=== PATIENT | female | born 1955 | race Caucasian/White ===

== ENCOUNTER 2024-09-29 05:54 | Day surgery (SDC) | payer MEDICARE, OTHER ==
[2024-09-11 11:25] LABS: BASOPHILS % (AUTO) 0.7 % (0-1); EOSINOPHILS # (AUTO) 0.1 X10'3 (0-0.9); EOSINOPHILS % (AUTO) 1.5 % (0-6); LYMPHOCYTES # (AUTO) 1.6 X10'3 (1.1-4.8); LYMPHOCYTES % (AUTO) 24.6 % (21-51); MEAN CORPUSCULAR HEMOGLOBIN 29.1 PG (27.0-31.0); MEAN CORPUSCULAR HGB CONC 33.5 g/dL (33.0-36.5); MEAN CORPUSCULAR VOLUME 86.8 FL (78-98); MEAN PLATELET VOLUME 8.4 FL (7.4-10.4); MONOCYTES # (AUTO) 0.5 X10'3 (0-0.9); MONOCYTES % (AUTO) 7.2 % (2-12); NEUTROPHILS # (AUTO) 4.4 X10'3 (1.8-7.7); PRE OP HEMATOCRIT 43.1 % (35.0-45.0); PRE OP HEMOGLOBIN 14.4 g/dL (12.0-16.0); PRE OP PLATELET COUNT 338 X10'3 (140-440); PRE OP WHITE BLOOD COUNT 6.6 10'3 (4.8-10.8); RED BLOOD COUNT 4.96 X10'6 (4.20-5.60); RED CELL DISTRIBUTION WIDTH 13.8 % (11.5-14.5)
[2024-09-11 11:40] LABS: ALBUMIN 3.9 G/DL (3.4-5.0); ALBUMIN/GLOBULIN RATIO 1.1 (1.1-1.5); ALKALINE PHOSPHATASE 113 IU/L (46-116); BLOOD UREA NITROGEN 16 MG/DL (7-18); BUN/CREATININE RATIO 22.5 (10.0-20.0); CHLORIDE 105 MMOL/L (99-107); CREATININE 0.71 MG/DL (0.40-0.90); PRE OP ALT 22 U/L (30-65); PRE OP ANION GAP 6 (8-16); PRE OP AST 7 U/L (10-37); PRE OP BILIRUB, TOTAL 0.5 MG/DL (0.0-1.0); PRE OP GLUCOSE 184 MG/DL (70-104); PRE OP POTASSIUM 4.2 MMOL/L (3.4-5.1); PRE OP SODIUM 140 MMOL/L (135-145); TOTAL CARBON DIOXIDE 28.8 MMOL/L (24-32); TOTAL PROTEIN 7.6 G/DL (6.4-8.2); eGFR 82 ML/MIN
[2024-09-17] MEDS: famotidine 20mg tablet PO ONE (05:30)
[2024-09-17] MEDS: DOCUMENT DATE & TIME OF BETA-BLOCKER PO ONE (05:30)
[2024-09-17] MEDS: INDOCYANINE GREEN 25 MG/10 ML VIAL IV ONE (05:30)
[2024-09-17] MEDS: ceFAZolin 2gm in dextrose, iso 50 ML IV ONE (05:30)
[~2024-09-29] VITALS: Ht 154.9 cm; Wt 73.1 kg
[2024-09-29] VITALS (12 sets, daily range): BP systolic 120–142; BP diastolic 67–74; PULSE 55–70; RESP 10–16; TEMP 97.3; O2SAT 95–98
[2024-09-29] MEDS: ceFAZolin 2gm in dextrose, iso 50 ML IV ONE (05:30)
[~2024-09-29 05:54] MED LIST: ATOR10TA PO; GLIM4TAB7 PO; INSU300I3 SQ; LATA2.5D14 EACHEYE; LEVO100T9 PO; LISI20TA28 PO; METF-436 PO; METO-395 PO; MULTIVITAMIN PO; OMEP20CA16 PO; ringers solution, lacted 1,000 ML IV SCH
[2024-09-29] MEDS: famotidine 20mg tablet PO ONE (06:33)
[2024-09-29] MEDS: ringers solution, lacted 1,000 ML IV SCH ×2 (06:34→08:10)
[2024-09-29] MEDS ORDERED: BUPIVAcaine 2.5mg/ml inj 50ml vial (contains preservative) ONE (06:48)
[2024-09-29] MEDS ORDERED: LIDOcaine 1% 30ml preserv. free vial ONE (06:48)
[2024-09-29] MEDS: INDOCYANINE GREEN 25 MG/10 ML VIAL IV ONE (07:07)
[2024-09-29 07:12] LABS: BASOPHILS % (AUTO) 0.5 % (0-1); EOSINOPHILS # (AUTO) 0.1 X10'3 (0-0.9); EOSINOPHILS % (AUTO) 1.4 % (0-6); LYMPHOCYTES # (AUTO) 1.9 X10'3 (1.1-4.8); LYMPHOCYTES % (AUTO) 27.7 % (21-51); MEAN CORPUSCULAR HEMOGLOBIN 29.1 PG (27.0-31.0); MEAN CORPUSCULAR HGB CONC 33.6 g/dL (33.0-36.5); MEAN CORPUSCULAR VOLUME 86.5 FL (78-98); MEAN PLATELET VOLUME 8.3 FL (7.4-10.4); MONOCYTES # (AUTO) 0.6 X10'3 (0-0.9); MONOCYTES % (AUTO) 8.8 % (2-12); NEUTROPHILS # (AUTO) 4.3 X10'3 (1.8-7.7); NEUTROPHILS % (AUTO) 61.6 % (42-75); PRE OP HEMATOCRIT 43.2 % (35.0-45.0); PRE OP HEMOGLOBIN 14.5 g/dL (12.0-16.0); PRE OP PLATELET COUNT 298 X10'3 (140-440); PRE OP WHITE BLOOD COUNT 6.9 10'3 (4.8-10.8); RED BLOOD COUNT 4.99 X10'6 (4.20-5.60); RED CELL DISTRIBUTION WIDTH 13.9 % (11.5-14.5)
[2024-09-29 07:27] LABS: ALBUMIN 3.9 G/DL (3.4-5.0); ALBUMIN/GLOBULIN RATIO 1.1 (1.1-1.5); ALKALINE PHOSPHATASE 101 IU/L (46-116); BLOOD UREA NITROGEN 16 MG/DL (7-18); BUN/CREATININE RATIO 22.2 (10.0-20.0); CALCIUM 9.7 MG/DL (8.5-10.1); CHLORIDE 106 MMOL/L (99-107); CREATININE 0.72 MG/DL (0.40-0.90); PRE OP ALT 22 U/L (30-65); PRE OP ANION GAP 10 (8-16); PRE OP AST 14 U/L (10-37); PRE OP BILIRUB, TOTAL 0.6 MG/DL (0.0-1.0); PRE OP GLUCOSE 155 MG/DL (70-104); PRE OP POTASSIUM 4.2 MMOL/L (3.4-5.1); PRE OP SODIUM 141 MMOL/L (135-145); TOTAL CARBON DIOXIDE 25.2 MMOL/L (24-32); TOTAL PROTEIN 7.3 G/DL (6.4-8.2); eCRCL 56 ML/MIN; eGFR 81 ML/MIN
[2024-09-29] MEDS ORDERED: proCHLORperazine 10 MG/2 ml inj IV PRN (08:10)
[2024-09-29] MEDS ORDERED: hydrALAZINE 20mg/ml inj. IV PRN (08:10)
[2024-09-29] MEDS ORDERED: morphine 2 MG/ML inj. syringe IV PRN (08:10)
[2024-09-29] MEDS ORDERED: morphine 4 MG/ML inj SYRINge IV PRN (08:10)
[2024-09-29] MEDS ORDERED: labetalol 20mg/4ml (5mg/ml) syringe IV PRN (08:10)
[2024-09-29] MEDS ORDERED: ondansetron/PF 4mg/2ml inj IV PRN (08:10)
[2024-09-29] MEDS ORDERED: meperidine/PF 25mg/ml syringe IV PRN ×3 (08:10)
[2024-09-29] MEDS ORDERED: sevoflurane 250ml liquid IH ONE (08:32)
[2024-09-29] MEDS ORDERED: midazolam 1 mg/ML 2ml injection ONE (08:43)
[2024-09-29] MEDS ORDERED: fentaNYL /PF 50mcg/ml 5ml ampule ONE (08:44)
[2024-09-29] MEDS ORDERED: LIDOcaine 2% (20mg/ml) 5ml vial ONE (09:01)
[2024-09-29] MEDS ORDERED: ondansetron/PF 4mg/2ml inj ONE (09:01)
[2024-09-29] MEDS ORDERED: rocuronium 10mg/ml inj IV ONE (09:01)
[2024-09-29] MEDS ORDERED: dexamethasone sod phosphate 4mg/ml inj. ONE (09:01)
[2024-09-29] MEDS ORDERED: propofol inj 20 ML IV ONE (09:01)
[2024-09-29] MEDS: BUPIVAcaine/PF 2.5 mg/ml (0.25%) 30ml vial IJ ONE (09:03)
[2024-09-29] MEDS ORDERED: glycopyrrolate 0.2mg/ml inj ONE (09:36)
[2024-09-29] MEDS ORDERED: neostigmine methylsulfate 1 MG/ML 10ml vial ONE (09:36)
[2024-09-29] MEDS ORDERED: meperidine/PF 100mg/ml syringe IV PRN ×3 (09:46→09:47)
[2024-09-29] MEDS ORDERED: sugammadex 200mg/2ml injection IV ONE (10:17)
[2024-09-29] MEDS: oxyCODONE/APAP 5-325mg tablet PO PRN (11:13)
[2024-09-29] MEDS: acetaminophen 1,000mg/100ml IV 100 ML IV PRN (11:13)
== END 2024-09-29 11:42 | disposition home or self-care (01) ==
LOC: PAS 05:54
PROVIDERS: ATTEND Surgery
DX: K80.10 Calculus of gallbladder with chronic cholecystitis without obstruction (principal); I10 Essential (primary) hypertension; E78.5 Hyperlipidemia, unspecified; K21.9 Gastro-esophageal reflux disease without esophagitis; E03.9 Hypothyroidism, unspecified; E11.9 Type 2 diabetes mellitus without complications; Z79.899 Other long term (current) drug therapy; Z98.890 Other specified postprocedural states; Z87.891 Personal history of nicotine dependence; Z98.51 Tubal ligation status
CPT/HCPCS: 36415; 47563; 80053; 82948; 85025; A4215; A4618; A7000; J0131; J0690; J1100; J2003; J2250; J2405; J2704; J2710; J3010; J3490; J7030; J7120; Z7506; Z7508; Z7512; Z7610